=== PATIENT | female | born 1965 | race Caucasian/White ===

== ENCOUNTER 2025-03-15 10:37 | Observation (INO) ==
[2025-03-15] MEDS ORDERED: 0.9 % SODIUM CHLORIDE 1000 ML 1,000 ML IV ONE (11:16)
[2025-03-15] MEDS: 0.9 % SODIUM CHLORIDE 100 ML IV.SOLN IV STA (11:19)
[2025-03-15] MEDS: 0.9 % SODIUM CHLORIDE 1000 ML 1,000 ML IV ONE (11:19)
[2025-03-15 11:30] LABS: Basophils #(Absolute) Auto 0.1 (0.0-0.1); Basophils%(Percent) Auto 1.2 (0.1-0.85); Eosinophils#(Absolute)Auto 0.2 (0.0-0.2); Eosinophils%(Percent) Auto 1.9 % (0.4-2.8); Granulocytes % - Auto 66.4 % (47.8-71.3); Granulocytes#(Absolute)- Auto 5.3 (2.3-6.0); Hematocrit 38.3 % (35.9-46.7); Mean Corpuscular Volume 88.1 fl (81.0-93.7); Monocytes #(Absolute)- Auto 0.7 (1.1-3.1); Monocytes %(Percent)- Auto 8.9 % (3.6-9.8); Platelet Count 241 K/uL (152-353)
[2025-03-15 12:32] LABS: PH BODY FLUID EXCP BLOOD 6.5 (5 - 9); Specific Gravity Urine 1.025 (1.001-1.035); Urine Appearance HAZY (CLEAR); Urine Blood NEGATIVE (NEG - TRACE); Urine Color YELLOW (STRAW/YELL.); Urine Urobilinogen Normal (NORMAL)
[2025-03-15 12:57] LABS: Oxygen Saturation ABG 97 % (92-100); PCO2 ABG 40 mmHg (35-45); PO2 ABG 92 mmHg (60-100); pH ABG 7.44 (7.35-7.45)
[2025-03-15 12:58] LABS: Base Excess ABG 2.8 mmo1/L (-2-2)
[2025-03-15 13:26] LABS: Amphetamine Screen Urine NEG. (NEGATIVE); Cannabinoid Screen Urine NEG. (NEGATIVE); Cocaine Screen Urine NEG. (NEGATIVE); Methadone Screen Urine NEG. (NEGATIVE); Opiate Screen Urine NEG. (NEGATIVE)
--- NOTE | 2025-03-15 13:32 | Emergency Department Note ---
HPI - Dizziness General Chief Complaint: Syncope Stated Complaint: NEAR SYNCOPE Source: patient Mode of arrival: walk-in Limitations: no limitations History of Present Illness HPI Narrative: 59-year-old female patient presents conscious alert and oriented x 4 to the ER stating that she feels very weak. Patient states that she feels like she may have been drugged. Patient states that she started to experience the symptoms about 930 this morning. Patient states she she feels like her speech is slurred and that she just cannot keep her eyes open although states that she is not tired. Patient denies any alcohol or drug use. agrees that her speech sounded slurred which she noticed on a phone conversation. MD elicited complaint: Reports dizziness, lightheadedness and near syncope Pertinent past history: Denies BPPV, inner ear problems, stroke, syncope or Meniere's disease Onset (ago): hour(s) (0930 am) Timing: Reports sudden onset Severity: mild Description: Reports lightheadedness, near-syncope and other (feels like I have been drugged) Context: Denies change in medication, change in body position, trauma, anxiety, recent illness or exertion History of similar symptoms: No Exacerbating factors: Reports nothing Relieving factors: Reports nothing Associated symptoms: Reports denies other symptoms Related Data Home Medications Medication Instructions Recorded Confirmed citalopram 40 mg tablet 40 mg PO DAILY 06/26/24 03/15/25 Allergies Allergy/AdvReac Type Severity Reaction Status Date / Time epinephrine Allergy Mild Verified 03/15/25 11:06 Sulfa (Sulfonamide Allergy Mild Verified 03/15/25 11:06 Antibiotics) clarithromycin (From Biaxin) Allergy Verified 03/15/25 11:06 Review of Systems Status of ROS 10 or more systems reviewed and unremark able except as noted in history and below Neurological Reports: dizziness and slurred speech; Denies: headache, numbness in extremities, weakness in extremities, lack of coordination, vertigo, confusion, behavioral changes, difficulty communicating thoughts, seizure-like activity or involuntary movements Psychiatric Reports: anxiety PFSH PFSH Medical History Arthritis Anxiety Depression Diabetes Surgical History Previous section History of tonsillectomy History of elbow surgery History of repair of hiatal hernia Hx of cholecystectomy Hx of breast reduction, elective History of partial hysterectomy Social History Smoking status: never smoker Within the past year, how often did you have a drink containing alcohol: never Score interpretation: A score less than 3 is consistent with normal alcohol consumption. Non-prescribed substance use: denies use Problems where you live: no known problems Exam Constitutional: normal general appearance (hard time keeping eyes open. easily arousable with verbal stimuli ) and no apparent distress Vital Signs - 24 hr 03/15/25 10:45 03/15/25 10:45 03/15/25 10:47 Temperature 98.1 F Pulse Rate 93 H 93 H 95 H Respiratory Rate 18 Blood Pressure 135/75 135/75 141/77 Pulse Oximetry 98 Oxygen Delivery Me thod Room Air 03/15/25 10:49 03/15/25 11:15 03/15/25 11:30 Temperature Pulse Rate 94 H 85 83 Respiratory Rate 18 18 Blood Pressure 140/86 123/72 110/74 Pulse Oximetry 98 98 Oxygen Delivery Me thod Room Air Room Air 03/15/25 11:45 03/15/25 12:00 Temperature Pulse Rate 77 69 Respiratory Rate 18 18 Blood Pressure 102/59 121/70 Pulse Oximetry 98 98 Oxygen Delivery Ms thod Room Air Room Air HENMT: normocephalic and head/scalp atraumatic Eyes: PERRL, EOMs intact bilaterally and conjunctivae normal Neck/C-Spine: visual inspection normal, trachea midline and cervical spine nontender Lymph: no lymphadenopathy noted and no lymphedema noted Chest: inspection of chest normal and palpation of chest normal Respiratory: breath sounds equal bilaterally, normal respiratory effort and clear to auscultation bilaterally Cardiovascular: normal heart rate noted and regular rhythm noted Gastrointestinal: abdomen normal to inspection, abdomen soft to palpation and nontender to palpation Genitourinary: no CVA tenderness Back/Pelvis: spine normal to inspection Extremities: normal to inspection Neurology: 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 Breath sounds clear and equal bilaterally. Abdomen soft and nontender palpation. Normoactive bowel sounds. No rigidity or distention is noted. Patient is afebrile on evaluation. Ce-Hallpike maneuver is negative. NIH stroke scale is 0. Orthostatics are negative. Patient is able to answer questions and follow commands appropriately. Patient does have the appearance that she is extremely tired however states that she just cannot keep her eyes open. Patient states that she is not in fact tired. Onset of the symptoms was 9:[address] shows no acute intracranial findings. The patient was reached and spoke with Dr. Winchester neurology. After evaluation Dr. Winchester does not believe that this patient is experiencing any strokelike activity and believes that this may be systemic in nature. He has encouraged the patient to be admitted to observation with an MRI. He has also requested that the patient have TSH, ammonia and abg testing completed. I have consulted with Dr. Nabila Hurd who has agreed to admit patient for further evaluation and treatment. Vital Signs Vital signs: Vital Signs Temperature 98.1 F 03/15/25 10:45 Pulse Rate 93 H 03/15/25 10:45 Respiratory Rate 18 03/15/25 10:45 Blood Pressure 135/75 03/15/25 10:45 Pulse Oximetry 98 03/15/25 10:45 Oxygen Delivery Method Room Air 03/15/25 10:45 Temperature 98.1 F 03/15/25 10:45 Pulse Rate 69 03/15/25 12:00 Respiratory Rate 18 03/15/25 12:00 Blood Pressure 121/70 03/15/25 12:00 Pulse Oximetry 98 03/15/25 12:00 Oxygen Delivery Method Room Air 03/15/25 12:00 Discharge Plan Discharge Patient Disposition: Admitted As Observation Condition: Stable Clinical Impression: Dizziness, Near syncope, Lethargy Time of Disposition: 14:19
--- NOTE | 2025-03-15 15:23 | History & Physical Report ---
H&P: HPI History of Present Illness Chief complaint: DIZZINESS,LETHARGY NEAR SYNCOPE Narrative: 59-year-old female patient presents conscious alert and oriented x 4 to the ER stating that she feels very weak. Patient states that she feels like she may have been drugged. Patient states that she started to experience the symptoms about 930 this morning. Patient states she she feels like her speech is slurred and that she just cannot keep her eyes open although states that she is not tired. Patient denies any alcohol or drug use. agrees that her speech sounded slurred which she noticed on a phone conversation. Admitted patient to med/surg for further observation and treatment. Review of Systems Status of ROS 10 or more systems reviewed and unremark able except as noted in history and below Constitutional Reports: fatigue; Denies: fever, chills or change in weight Eyes Denies: change in vision, blurry vision, blind spots or light sensitivity Ears, nose, mouth, and throat Denies: throat pain, neck pain, throat swelling, difficulty swallowing or vertigo Cardiovascular Denies: chest pain, palpitations, edema or swelling of feet/ankles Respiratory Denies: shortness of breath, cough, wheezing, stridor or pain on inspiration Gastrointestinal Denies: abdominal pain, nausea, vomiting, coffee grounds in vomit, heartburn or diarrhea Genitourinary Denies: painful urination, urinary frequency, urinary urgency, urinary incontinence, blood in urine or difficulty voiding Musculoskeletal Denies: back pain, neck pain, extremity pain or extremity swelling Integumentary/Breast Denies: rash, itching, redness, skin pain, skin tenderness, skin swelling or sores Neurological Reports: dizziness and slurred speech; Denies: headache, numbness in extremities, weakness in extremities, lack of coordination, vertigo, confusion, behavioral changes, difficulty communicating thoughts, seizure-like activity or involuntary movements Psychiatric Reports: anxiety Endocrine Reports: fatigue; Denies: excessive urination, excessive thirst or cold intolerance Hematologic/Lymphatic Denies: easy bruising, easy bleeding or enlarged lymph nodes Allergic/Immunologic Denies: hives, throat swelling, tongue swelling or facial swelling PFSH PFS Medical History Arthritis Anxiety Depression Diabetes Surgical History Previous section History of tonsillectomy History of elbow surgery History of repair of hiatal hernia Hx of cholecystectomy Hx of breast reduction, elective History of partial hysterectomy Social History Smoking status: never smoker Within the past year, how often did you have a drink containing alcohol: never Score interpretation: A score less than 3 is consistent with normal alcohol consumption. Non-prescribed substance use: denies use Problems where you live: no known problems Meds Home Medications and Allergies Home Medications Medication Instructions Recorded Confirmed Type citalopram 40 mg tablet 40 mg PO DAILY 06/26/24 03/15/25 History ergocalciferol (vitamin D2) 1,250 1,250 mcg PO QWEEK 03/15/25 03/15/25 History mcg (50,000 unit) capsule gabapentin 100 mg capsule 100 mg PO BEDTIME 03/15/25 03/15/25 History Allergies Allergy/AdvReac Type Severity Reaction Status Date / Time epinephrine Allergy Mild Verified 03/15/25 11:06 Sulfa (Sulfonamide Allergy Mild Verified 03/15/25 11:06 Antibiotics) clarithromycin (From Biaxin) Allergy Verified 03/15/25 11:06 Exam Exam: Patient in NAD, presents lethargic. Constitutional: abnormal general appearance (hard time keeping eyes open. easily arousable with verbal stimuli ) (disheveled), no apparent distress, abnormal body habitus (obese), no limitations and alert Vital Signs - 24 hr 03/15/25 10:45 03/15/25 10:45 03/15/25 10:47 Temperature 98.1 F Pulse Rate 93 H 93 H 95 H Respiratory Rate 18 Blood Pressure 135/75 135/75 141/77 Pulse Oximetry 98 Oxygen Delivery Me thod Room Air 03/15/25 10:49 03/15/25 11:15 03/15/25 11:30 Temperature Pulse Rate 94 H 85 83 Respiratory Rate 18 18 Blood Pressure 140/86 123/72 110/74 Pulse Oximetry 98 98 Oxygen Delivery Me thod Room Air Room Air 03/15/25 11:45 03/15/25 12:00 03/15/25 12:30 Temperature Pulse Rate 77 69 83 Respiratory Rate 18 18 18 Blood Pressure 102/59 121/70 127/72 Pulse Oximetry 98 98 98 Oxygen Delivery Me thod Room Air Room Air Room Air 03/15/25 13:00 03/15/25 13:30 03/15/25 14:00 Temperature Pulse Rate 76 76 79 Respiratory Rate 17 17 16 Blood Pressure 123/77 110/64 125/64 Pulse Oximetry 98 97 97 Oxygen Delivery Ia thod Room Air Room Air Room Air 03/15/25 14:30 Temperature Pulse Rate 74 Respiratory Rate 17 Blood Pressure 101/62 Pulse Oximetry [address] [facility] HENMT: normocephalic, head/scalp atraumatic, hearing grossly normal bilaterally and oral mucous membranes abnormal Eyes: PERRL, EOMs intact bilaterally, conjunctivae normal, no scleral icterus, papilledema noted and periorbital findings normal Neck/C-Spine: trachea midline, cervical spine nontender, abnormal cervical ROM noted, supple, no meningeal signs, thyroid normal and no carotid bruits Lymph: no lymphadenopathy noted and no lymphedema noted Chest: inspection of chest normal and palpation of chest normal Respiratory: breath sounds equal bilaterally, normal respiratory effort and clear to auscultation bilaterally Cardiovascular: normal heart rate noted and regular rhythm noted Gastrointestinal: abdomen normal to inspection, abdomen soft to palpation and nontender to palpation Genitourinary: no CVA tenderness and bladder normal to palpation Back/Pelvis: no thoracic spine tenderness and no lumbar spine tenderness Extremities: normal to inspection, normal to palpation, no tenderness, full ROM and no joint enlargement 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: 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 services 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-XII 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, no movement abnormality noted, no focal motor deficit noted, no sensory deficits noted, gait abnormality noted, speech abnormality noted, coordination normal and GCS normal Psychiatry: mental status grossly normal, oriented x3, thought process normal, cooperative and memory normal Skin: skin color normal, no rash, no lesions, no ecchymosis noted, no wounds, no lacerations, skin turgor abnormal, no petechiae, no mottling and nails normal Assessment and Plan Assessment and Plan (1) AMS (altered mental status): Qualifiers: Altered mental status type: unspecified Qualified Code(s): R41.82 - Altered mental status, unspecified Code(s): R41.82 - Altered mental status, unspecified (2) Dizziness: Code(s): R42 - Dizziness and giddiness (3) Lethargy: Code(s): R53.83 - Other fatigue (4) Hyperglycemia: Code(s): R73.9 - Hyperglycemia, unspecified (5) Near syncope: Code(s): R55 - Syncope and collapse (6) Hypoalbuminemia: Code(s): E88.09 - Other disorders of plasma-protein metabolism, not elsewhere classified (7) Diabetes: Qualifiers: Diabetes mellitus complication status: with hyperglycemia Diabetes mellitus penitentiary insulin use: with penitentiary use Diabetes mellitus type: type 2 Qualified Code(s): E11.65 - Type 2 diabetes mellitus with hyperglycemia; Z79.4 - shelter (current) use of insulin Code(s): E11.9 - Type 2 diabetes mellitus without complications (8) Depression: Qualifiers: Depression Type: unspecified Qualified Code(s): F32.A - Depression, unspecified Code(s): F32.A - Depression, unspecified (9) Anxiety: Code(s): F41.9 - Anxiety disorder, unspecified (10) Arthritis: Code(s): M19.90 - Unspecified osteoarthritis, unspecified site Plan Citalopram Hydrobromide 40 mg PO DAILY Ergocalciferol 1,250 mcg PO QWEEK Gabapentin 100 mg PO BEDTIME cardiac and oximetry continous monitoring POC ACHS EKG in the AM Trop every 6 hours 0.9NS at 83 ml per hour neuro checks every 4 hours and prn MRI of the head Results Labs Labs: CBC 03/15/25 Range/Units 11:15 WBC 8.0 (4.3-9.3) K/uL RBC 4.3 (4.00-5.50) M/uL Hgb 12.8 (12.5-15.8) gm/dL Hct 38.3 (35.9-46.7) % Plt Count 241 (152-353) K/uL Gran % 66.4 (47.8-71.3) % Lymph % (Auto) 21.6 (20.0-43.0) % [place] % (Auto) 8.9 (3.6-9.8) % Eos % (Auto) 1.9 (0.4-2.8) % Baso % (Auto) 1.2 H (0.1-0.85) Lymph # (Auto) 1.7 (1.1-3.1) [place] # (Auto) 0.7 L (1.1-3.1) Eos # (Auto) 0.2 (0.0-0.2) Baso # (Auto) 0.1 (0.0-0.1) Absolute Gran (auto) 5.3 (2.3-6.0) CMP 03/15/25 11:15 Sodium 143 Potassium 4.0 Chloride 106.0 Carbon Dioxide 32 BUN 17 Creatinine 1.0 Glucose 154 H Calcium 8.8 Liver Function 03/15/25 Range/Units 11:15 Total Bilirubin 0.15 (0.0-1.0) mg/dL AST 13 L (15-37) U/L ALT 20 L (30-65) U/L Alkaline Phosphatase 103 (50-136) U/L Albumin 3.2 L (3.4-5.0) g/dL Urine 03/15/25 11:04 Urine Color Yellow Urine Appearance Hazy Ur Specific [place] 1.025 Urine Protein Negative Urine Glucose (UA) Normal ABG ABG results: 03/15/25 12:36 ABG pH 7.44 ABG pCO2 40 ABG pO2 100 ABG HCO3 27.2 H ABG Total CO2 28.4 ABG O2 Saturation 97 ABG Base Excess 2.8 H Attestation: I have reviewed the pertinent ABG results. Pulse Oximetry Attestation: I have reviewed the pertinent pulse oximetry results. ECG Attestation: I have reviewed the pertinent ECG results. Prior ECG tracings: available for review Imaging Imaging ordered: CT scan - head Radiologist's impression: CT HEAD/BRAIN WO CON Date of Service: 03/15/25 HISTORY: change in mental statuschange in mental status; COMPARISON: Prior study or studies were utilized for comparison during interpretation with the most relevant dated 09/30/2023 TECHNIQUE: CT images were obtained. Multiplanar reconstructions were created on a separate workstation and used during interpretation. All CT scans at this facility is dose modulation, iterative reconstruction, and/or weight-based dosing as appropriate to reduce radiation to levels as low as reasonably achievable (ALARA). Postprocessing details, radiation dose, and contrast dose (if applicable) are recorded in the patient's medical record. FINDINGS: Head: Acute findings: There is no intracranial hemorrhage. No mass effect. No intra- axial or extra-axial fluid collection. There is no mass. No tentorial, uncal, or tonsillar herniation. Brain volume and white matter: Brain volume and attenuation is normal for age. Ventricles: No hydrocephalus Midline structures: Pituitary gland and corpus callosum are normal. Posterior fossa and skull base: Cerebellum and posterior fossa are within normal limits. Basal cisterns are not effaced. Sinuses and mastoids: Paranasal sinuses and mastoid air cells are predominantly clear. Globes and Orbits: Globes are intact. Bony orbits are intact. Orbital contents are unremarkable. Skull and soft tissues: No depressed skull fracture. Calvarium appears intact. No scalp injury is identified. IMPRESSION: 1. No acute intracranial abnormality
[2025-03-15] MEDS: ACETAMINOPHEN 500 MG TABLET PO PRN (17:08)
[2025-03-15] MEDS: PANTOPRAZOLE SODIUM 40 MG TABLET.DR PO SCH (17:08)
[2025-03-15] MEDS: ENOXAPARIN SODIUM 40 MG/0.4 ML SYRINGE SUBQ SCH (20:07)
[2025-03-15] MEDS: GABAPENTIN 100 MG CAPSULE PO SCH (20:08)
[2025-03-15] MEDS: ONDANSETRON HCL/PF 4 MG/2 ML VIAL IVP PRN (20:27)
[2025-03-16 03:57] LABS: Basophils%(Percent) Auto 0.6 (0.1-0.85); Eosinophils#(Absolute)Auto 0.2 (0.0-0.2); Eosinophils%(Percent) Auto 2.3 % (0.4-2.8); Granulocytes % - Auto 48.2 % (47.8-71.3); Granulocytes#(Absolute)- Auto 3.5 (2.3-6.0); Hematocrit 35.6 % (35.9-46.7); Mean Corpuscular Volume 87.3 fl (81.0-93.7); Monocytes #(Absolute)- Auto 0.6 (1.1-3.1); Platelet Count 226 K/uL (152-353); White Blood Count 7.3 K/uL (4.3-9.3)
[2025-03-16 07:45] VITALS: PULSE 66
[2025-03-16] MEDS: CITALOPRAM HYDROBROMIDE 20 MG TABLET PO SCH (09:10)
--- NOTE | 2025-03-16 10:17 | Discharge Summary ---
DS: Providers Provider Date of admission: 03/15/25 14:35 Primary care physician: Millie Gaytan Admitting clinician: Quinton Berg Attending physician on admission: Nabila Hurd Attending physician on discharge: Nabila Hurd Discharging clinician: Nabila Hurd Anticipated date of discharge: 03/16/25 DS: Diagnosis Discharge Diagnosis (1) AMS (altered mental status): Qualifiers: Altered mental status type: unspecified Qualified Code(s): R41.82 - Altered mental status, unspecified (2) Near syncope: (3) Hyperglycemia: (4) TIA (transient ischemic attack): (5) Dizziness: (6) Lethargy: (7) Hypoalbuminemia: (8) Diabetes: Qualifiers: Diabetes mellitus complication status: with hyperglycemia Diabetes mellitus rn long term care insulin use: with mcc use Diabetes mellitus type: type 2 Qualified Code(s): E11.65 - Type 2 diabetes mellitus with hyperglycemia; 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 (9) Depression: Qualifiers: Depression Type: unspecified Qualified Code(s): F32.A - Depression, unspecified (10) Anxiety: (11) Arthritis: (12) Bacterial labyrinthitis of both ears: (13) GERD with esophagitis: Qualifiers: Esophagitis bleeding: without hemorrhage Qualified Code(s): K21.00 - Gastro-esophageal reflux disease with esophagitis, without bleeding (14) Esophageal stricture: (15) Allergic sinusitis: (16) Sinus headache: Plan Citalopram Hydrobromide 40 mg PO DAILY Ergocalciferol 1,250 mcg PO QWEEK Gabapentin 100 mg PO BEDTIME Pantoprazole Sodium 40 mg PO DAILY Enoxaparin Sodium 40 mg SUBQ BEDTIME neuro checks every 4 hours and prn consult PT and OT and evaluate for eply maneuver Acetaminophen 1,000 mg PO Q6H PRN Ondansetron Hcl 4 mg IVP Q4H PRN Discharge home for self care. Follow up with Neurology DS: Summary Hospital Course Hospital Course: Patient was evaluated in the ER found to be in no acute distress. Breath sounds clear and equal bilaterally. Abdomen soft and nontender palpation. Normoactive bowel sounds. No rigidity or distention is noted. Patient is afebrile on evaluation. [place]-Hallpike maneuver is negative. NIH stroke scale is 0. Orthostatics are negative. Patient is able to answer questions and follow commands appropriately. Patient does have the appearance that she is extremely tired however states that she just cannot keep her eyes open. Patient states that she is not in fact tired. Onset of the symptoms was 9:[address] shows no acute intracranial findings. The patient was reached and spoke with Dr. Winchester neurology. After evaluation Dr. Winchester does not believe that this patient is experiencing any strokelike activity and believes that this may be systemic in nature. He has encouraged the patient to be admitted to observation with an MRI. He has also requested that the patient have TSH, ammonia and abg testing completed. Day two of hospital stay, patient no longer reports trouble keeping her eyes open and symptoms from previous day have resolved. Patient labs are within normal limits, urinalysis was negative and MRI was negative. Patient is ready to discharge home for self care. Follow up with PCP in 5-7 days of discharge or sooner if needed. Follow up with Neurologist due to episode of altered state of consciousness. Status at Discharge Functional status at discharge: independent ambulation Overall status at discharge: patient is back to baseline Time Spent with Patient Time attestation: Total time spent providing and/or coordinating discharge services: 39 Time spent: greater than 30 minutes Exam Exam: Patient in NAD. Constitutional: abnormal general appearance (disheveled) and (chronically ill), no apparent distress, abnormal body habitus (obese), no limitations and alert Vital Signs - 24 hr 03/15/25 10:45 03/15/25 10:45 03/15/25 10:47 Temperature 98.1 F Pulse Rate 93 H 93 H 95 H Pulse Rate [Bilate ral] Respiratory Rate 18 Blood Pressure 135/75 135/75 141/77 Blood Pressure [Ri ght Arm] Pulse Oximetry 98 Oxygen Delivery Me thod Room Air 03/15/25 10:49 03/15/25 11:15 03/15/25 11:30 Temperature Pulse Rate 94 H 85 83 Pulse Rate [Bilate ral] Respiratory Rate 18 18 Blood Pressure 140/86 123/72 110/74 Blood Pressure [Ri ght Arm] Pulse Oximetry 98 98 Oxygen Delivery Me thod Room Air Room Air 03/15/25 11:45 03/15/25 12:00 03/15/25 12:30 Temperature Pulse Rate 77 69 83 Pulse Rate [Bilate ral] Respiratory Rate 18 18 18 Blood Pressure 102/59 121/70 127/72 Blood Pressure [Ri ght Arm] Pulse Oximetry 98 98 [facility] Room [facility] Room Air 03/15/25 13:00 03/15/25 13:30 03/15/25 14:00 Temperature Pulse Rate 76 76 79 Pulse Rate [Bilate ral] Respiratory Rate 17 17 16 Blood Pressure 123/77 110/64 125/64 Blood Pressure [Ri ght Arm] Pulse Oximetry 98 97 97 [facility] Room Air Room Air 03/15/25 14:30 03/15/25 14:47 03/15/25 15:00 Temperature Pulse Rate 74 76 Pulse Rate [Bilate ral] Respiratory Rate 17 18 18 Blood Pressure 101/62 119/74 Blood Pressure [Ri ght Arm] Pulse Oximetry 96 96 98 Oxygen Delivery [facility] Room Air Room Air Room Air 03/15/25 15:13 03/15/25 19:31 03/15/25 23:21 Temperature 98.1 F 98.0 F 98.4 F Pulse Rate 76 Pulse Rate [Bilate ral] 76 58 L Respiratory Rate 18 18 16 Blood Pressure 119/74 Blood Pressure [Ri ght Arm] 122/68 107/58 Pulse Oximetry 98 100 95 [facility] Room Air 03/16/25 03:37 03/16/25 07:45 Temperature 97.7 F 97.8 F Pulse Rate Pulse Rate [Bilate ral] 65 66 Respiratory Rate 20 18 Blood Pressure Blood Pressure [Ri ght Arm] 121/64 105/61 Pulse Oximetry 96 97 Oxygen Delivery [facility] Room Air Room Air HENMT: normocephalic, head/scalp atraumatic, hearing grossly normal bilaterally and oral mucous membranes abnormal Eyes: PERRL, EOMs intact bilaterally, conjunctivae normal, no scleral icterus, papilledema noted and periorbital findings normal Neck/C-Spine: visual inspection normal, trachea midline, cervical spine nontender, abnormal cervical ROM noted, supple, no meningeal signs, thyroid normal and no carotid bruits Lymph: no lymphadenopathy noted and no lymphedema noted Chest: inspection of chest normal and palpation of chest normal Respiratory: breath sounds equal bilaterally, normal respiratory effort and clear to auscultation bilaterally Cardiovascular: normal heart rate noted, regular rhythm noted, no gallop, no rub, no murmur, no JVD, no clicks, peripheral pulses 2+ throughout and no bruits noted Gastrointestinal: abdomen normal to inspection, abdomen soft to palpation, nontender to palpation, nondistended, normoactive bowel sounds, hepatosplenomegaly noted, no masses, no pulsatile mass, no ascites and no hernia Genitourinary: no CVA tenderness and bladder normal to palpation Back/Pelvis: spine normal to inspection, no thoracic spine tenderness, no lumbar spine tenderness, thoracic spine ROM normal and lumbar spine ROM normal Extremities: normal to inspection, normal to palpation, no tenderness, full ROM, no joint enlargement and no deformity 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, no movement abnormality noted, no focal motor deficit noted, no sensory deficits noted, gait abnormality noted, speech abnormality noted, coordination normal and GCS normal Psychiatry: mental status grossly normal, oriented x3, thought process normal, cooperative, affect abnormality noted (depressed), psychomotor abnormality noted (slow) and memory normal Skin: skin color abnormal Reports (pale), no rash, no lesions, no ecchymosis noted, no wounds, no lacerations, skin turgor abnormal, no petechiae, no mottling and nails normal DS: Data Data Completed and Pending Labs on day of discharge: Labs from last 24 hours 03/16/25 03/16/25 03/15/25 06:00 04:00 22:15 WBC 7.3 RBC 4.1 Hgb 11.8 L Hct 35.6 L MCV 87.3 MCH 29.0 MCHC 33.3 RDW 13.5 Plt Count 226 MPV 8.5 Gran % 48.2 Lymph % (Auto) 40.9 Isabella % (Auto) 8.0 Eos % (Auto) 2.3 Baso % (Auto) 0.6 Lymph # (Auto) 3.0 Isabella # (Auto) 0.6 L Eos # (Auto) 0.2 Baso # (Auto) 0.0 Absolute Gran (auto) 3.5 ABG pH ABG pCO2 ABG pO2 ABG HCO3 ABG Total CO2 ABG O2 Saturation ABG Base Excess A-a O2 Gradient Respiratory Index FiO2 Sodium 143 Potassium 4.0 Chloride 107.0 Carbon Dioxide 31 Anion Gap 5.0 BUN 14 Creatinine 0.8 Estimated GFR 85.4 Glucose 115 H Calcium 8.6 Phosphorus 4.6 Magnesium 1.8 Total Bilirubin 0.24 AST 11 L ALT 18 L Alkaline Phosphatase 81 Total Creatine Kinase Troponin I High Sens <4.00 L 5.40 Total Protein 6.3 L Albumin 2.9 L TSH Urine Color Urine Appearance Ur Specific [employer] Urine Protein Urine Glucose (UA) Urine Ketones Urine Occult Blood Urine Nitrite Urine Bilirubin Urine Urobilinogen Ur Leukocyte Esterase Fluid pH Salicylates Urine Opiates Screen Urine Methadone Screen Acetaminophen Barbiturate Screen Ur Phencyclidine Scrn Amphetamines Screen U Benzodiazepines Scrn Urine Cocaine Screen U Marijuana (THC) Screen Plasma/Serum Alcohol COVID-19 (BREANA) Influenza Type A Ag Influenza Type B Ag 03/15/25 03/15/25 03/15/25 16:00 12:55 12:36 WBC RBC Hgb Hct MCV MCH MCHC RDW Plt Count MPV Gran % Lymph % (Auto) Isabella % (Auto) Eos % (Auto) Baso % (Auto) Lymph # (Auto) Isabella # (Auto) Eos # (Auto) Baso # (Auto) Absolute Gran (auto) ABG pH ABG pCO2 ABG pO2 100 ABG HCO3 27.2 H ABG Total CO2 28.4 ABG O2 Saturation 97 ABG Base Excess 2.8 H A-a O2 Gradient 8 Respiratory Index 0.1 FiO2 21.0 Sodium Potassium Chloride Carbon Dioxide Anion Gap BUN Creatinine Estimated GFR Glucose Calcium Phosphorus Magnesium Total Bilirubin AST ALT Alkaline Phosphatase Total Creatine Kinase 119 Troponin I High Sens <4.00 L Total Protein Albumin TSH 0.93 Urine Color Urine Appearance Ur Specific [employer] Urine Protein Urine Glucose (UA) Urine Ketones Urine Occult Blood Urine Nitrite Urine Bilirubin Urine Urobilinogen Ur Leukocyte Esterase Fluid pH Salicylates Urine Opiates Screen Urine Methadone Screen Acetaminophen Barbiturate Screen Ur Phencyclidine Scrn Amphetamines Screen U Benzodiazepines Scrn Urine Cocaine Screen U Marijuana (THC) Screen Plasma/Serum Alcohol COVID-19 (BREANA) Influenza Type A Ag Influenza Type B Ag 03/15/25 03/15/25 03/15/25 12:36 12:15 11:15 WBC 8.0 RBC 4.3 Hgb 12.8 Hct 38.3 MCV 88.1 MCH 29.4 MCHC 33.3 RDW 13.9 Plt Count 241 MPV 8.9 Gran % 66.4 Lymph % (Auto) 21.6 Isabella % (Auto) 8.9 Eos % (Auto) 1.9 Baso % (Auto) 1.2 H Lymph # (Auto) 1.7 Isabella # (Auto) 0.7 L Eos # (Auto) 0.2 Baso # (Auto) 0.1 Absolute Gran (auto) 5.3 ABG pH 7.44 ABG pCO2 40 ABG pO2 92 ABG HCO3 ABG Total CO2 ABG O2 Saturation ABG Base Excess A-a O2 Gradient Respiratory Index FiO2 Sodium 143 Potassium 4.0 Chloride 106.0 Carbon Dioxide 32 Anion Gap 5.0 BUN 17 Creatinine 1.0 Estimated GFR 65.3 Glucose 154 H Calcium 8.8 Phosphorus Magnesium Total Bilirubin 0.15 AST 13 L ALT 20 L Alkaline Phosphatase 103 Total Creatine Kinase Troponin I High Sens 6.10 Total Protein 6.8 Albumin 3.2 L TSH Urine Color Urine Appearance Ur Specific [employer] Urine Protein Urine Glucose (UA) Urine Ketones Urine Occult Blood Urine Nitrite Urine Bilirubin Urine Urobilinogen Ur Leukocyte Esterase Fluid pH Salicylates <2.8 L Urine Opiates Screen Neg. Urine Methadone Screen Neg. Acetaminophen 0.0 L Barbiturate Screen Neg. Ur Phencyclidine Scrn Neg. Amphetamines Screen Neg. U Benzodiazepines Scrn Neg. Urine Cocaine Screen Neg. U Marijuana (THC) Screen Neg. Plasma/Serum Alcohol 0 COVID-19 (BREANA) Not detected Influenza Type A Ag Negative Influenza Type B Ag Negative 03/15/25 11:04 WBC RBC Hgb Hct MCV MCH MCHC RDW Plt Count MPV Gran % Lymph % (Auto) Isabella % (Auto) Eos % (Auto) Baso % (Auto) Lymph # (Auto) Isabella # (Auto) Eos # (Auto) Baso # (Auto) Absolute Gran (auto) ABG pH ABG pCO2 ABG pO2 ABG HCO3 ABG Total CO2 ABG O2 Saturation ABG Base Excess A-a O2 Gradient Respiratory Index FiO2 Sodium Potassium Chloride Carbon Dioxide Anion Gap BUN Creatinine Estimated GFR Glucose Calcium Phosphorus Magnesium Total Bilirubin AST ALT Alkaline Phosphatase Total Creatine Kinase Troponin I High Sens Total Protein Albumin TSH Urine Color Yellow Urine Appearance Hazy Ur Specific [employer] 1.025 Urine Protein Negative Urine Glucose (UA) Normal Urine Ketones Negative Urine Occult Blood Negative Urine Nitrite Negative Urine Bilirubin Negative Urine Urobilinogen Normal Ur Leukocyte Esterase Negative Fluid pH 6.5 Salicylates Urine Opiates Screen Urine Methadone Screen Acetaminophen Barbiturate Screen Ur Phencyclidine Scrn Amphetamines Screen U Benzodiazepines Scrn Urine Cocaine Screen U Marijuana (THC) Screen Plasma/Serum Alcohol COVID-19 (BREANA) Influenza Type A Ag Influenza Type B Ag Imaging CT scan - head: Radiologist's impression: CT HEAD/BRAIN WO CON Date of Service: 03/15/25 HISTORY: change in mental statuschange in mental status; COMPARISON: Prior study or studies were utilized for comparison during interpretation with the most relevant dated 09/30/2023 TECHNIQUE: CT images were obtained. Multiplanar reconstructions were created on a separate workstation and used during interpretation. All CT scans at this facility is dose modulation, iterative reconstruction, and/or weight-based dosing as appropriate to reduce radiation to levels as low as reasonably achievable (ALARA). Postprocessing details, radiation dose, and contrast dose (if applicable) are recorded in the patient's medical record. FINDINGS: Head: Acute findings: There is no intracranial hemorrhage. No mass effect. No intra- axial or extra-axial fluid collection. There is no mass. No tentorial, uncal, or tonsillar herniation. Brain volume and white matter: Brain volume and attenuation is normal for age. Ventricles: No hydrocephalus Midline structures: Pituitary gland and corpus callosum are normal. Posterior fossa and skull base: Cerebellum and posterior fossa are within normal limits. Basal cisterns are not effaced. Sinuses and mastoids: Paranasal sinuses and mastoid air cells are predominantly clear. Globes and Orbits: Globes are intact. Bony orbits are intact. Orbital contents are unremarkable. Skull and soft tissues: No depressed skull fracture. Calvarium appears intact. No scalp injury is identified. IMPRESSION: 1. No acute intracranial abnormality MRI - head: Radiologist's impression: MR HEAD WO CON Date of Service: 03/15/25 HISTORY: Altered mental status COMPARISON: CT head without contrast from March 15, 2025 TECHNIQUE: Non-contrast MRI images of the brain were obtained utilizing a routine protocol. FINDINGS: No abnormal signal in the dural sinuses on the sagittal T1 sequence. Pituitary gland and stalk appear normal. No mass effect on the optic chiasm. No Chiari 1 malformation. Imaged portion of the spine and spinal cord appear grossly normal. No restricted diffusion. Flow voids appear normal on the T2 sequence. No intracranial, extra-axial, fluid collection. No mass, mass effect or midline shift. No abnormal areas of acute T2 signal in the brain parenchyma. No blooming artifact in the brain parenchyma. Sinuses are well aerated Small amount of fluid in the right mastoid air cells; nonspecific. Left mastoid air cells are well-aerated. Globes and intra-orbital contents appear normal. No ventriculomegaly. IMPRESSION: No acute intracranial abnormality identified. Discharge Plan Discharge Disposition: Home, Self-Care Condition: Improved Discharge Medications: New aspirin 81 mg tablet,delayed release (DR/EC) 81 mg PO DAILY Qty: 30 0RF famotidine [Pepcid] 40 mg tablet 40 mg PO BID Qty: 30 0RF levocetirizine [Xyzal] 5 mg tablet 5 mg PO DAILY Qty: 30 0RF fluticasone propionate [Flonase Allergy Relief] 50 mcg/actuation spray,suspension 1 spray intranasal BID Qty: 16 0RF Rx Instructions: administer into each nostril Continued citalopram 40 mg tablet 40 mg PO DAILY gabapentin 100 mg capsule 100 mg PO BEDTIME ergocalciferol (vitamin D2) 1,250 mcg (50,000 unit) capsule 1,250 mcg PO QWEEK Discharge Orders: Discharge Order (Routine); Ordered 03/16/25 Ordered By: Nabila Hurd Activity: increase activity as tolerated Diet: advance to your usual diet Interventions: Discharge Assessment Last Done: 03/16/25 12:21 MED/SURG & ICU Observation Charge Sheet Last Done: 03/16/25 12:23 Patient Instructions: Near Syncope (DC), Dizziness (GEN) Activity Restrictions/Additional Instructions: follow up PCP 1 week Dami Gaytan neurology appointment cardiology already had cath last year Follow up PCP or return to the ER earl if symptoms persist or worsen Forms: Portal/Health Info Access Inst Follow-Ups: Millie Gaytan [Primary Care Provider] - Discharge Date/Time: 03/16/25 12:59
[2025-03-16 12:11] VITALS: BP 121/76; RESP 16; TEMP 97.6
[2025-03-16] MEDS: KETOROLAC 30 MG/ML INJ VIAL IVP ONE (12:37)
[2025-03-22] MEDS ORDERED: ERGOCALCIFEROL (VITAMIN D2) 1,250 MCG CAPSULE PO SCH (09:00)
== END 2025-03-16 12:59 | disposition home or self-care (01) ==
LOC: ED 10:37 → MS 10:37
PROVIDERS: ADMIT Family Medicine; ATTEND Family Medicine
DX: K22.2 Esophageal obstruction; Z88.1 Allergy status to other antibiotic agents; Z88.2 Allergy status to sulfonamides; H83.03 Labyrinthitis, bilateral; E11.65 Type 2 diabetes mellitus with hyperglycemia; F41.9 Anxiety disorder, unspecified; R51.9 Headache, unspecified; Z79.899 Other long term (current) drug therapy; K21.00 Gastro-esophageal reflux disease with esophagitis, without bleeding; Z79.82 Long term (current) use of aspirin; M19.90 Unspecified osteoarthritis, unspecified site; F32.A Depression, unspecified; Z79.4 Long term (current) use of insulin; G45.9 Transient cerebral ischemic attack, unspecified; Z88.8 Allergy status to other drugs, medicaments and biological substances; J30.9 Allergic rhinitis, unspecified; E88.09 Other disorders of plasma-protein metabolism, not elsewhere classified

== ENCOUNTER 2025-03-18 15:24 | Observation (INO) ==
[2025-03-18] MEDS: KETOROLAC 30 MG/ML INJ VIAL IVP ONE (16:22)
[2025-03-18] MEDS: ONDANSETRON HCL/PF 4 MG/2 ML VIAL INJ ONE (16:23)
[2025-03-18 17:22] LABS: Basophils #(Absolute) Auto 0.1 (0.0-0.1); Basophils%(Percent) Auto 0.8 (0.1-0.85); Eosinophils#(Absolute)Auto 0.2 (0.0-0.2); Eosinophils%(Percent) Auto 2.2 % (0.4-2.8); Granulocytes % - Auto 62.6 % (47.8-71.3); Granulocytes#(Absolute)- Auto 4.9 (2.3-6.0); Mean Corpuscular Volume 87.9 fl (81.0-93.7); Monocytes #(Absolute)- Auto 0.6 (1.1-3.1); Monocytes %(Percent)- Auto 7.9 % (3.6-9.8); Platelet Count 229 K/uL (152-353); White Blood Count 7.7 K/uL (4.3-9.3)
--- NOTE | 2025-03-18 17:32 | Emergency Department Note ---
HPI - Neuro Symptoms/Deficit General Chief Complaint: Stroke Stated Complaint: hx of stroke like symptoms,Headache Source: patient and family Mode of arrival: walk-in Limitations: no limitations History of Present Illness HPI Narrative: 59-year-old female reports approximate 5-day history of continued right-sided headache. Patient seen in ED and admitted 3 days prior, ultimately diagnosed with TIA at discharge. Patient states she had a headache her entire hospital course and at time of discharge. She returns to the ER today with continued headache and complaints of right sided facial numbness and blurry vision. She denies loss of consciousness/syncopal episode. She denies fever. Location: Reports right face Severity: mild-moderate Quality: Reports numb Relieving factors: Reports none Exacerbating factors: Reports none Context: Reports gradual onset On Anticoagulants: No Associated symptoms: Reports headaches Treatments Prior to Arrival: Reports none Related Data Home Medications Medication Instructions Recorded Confirmed citalopram 40 mg tablet 40 mg PO DAILY 06/26/24 03/15/25 ergocalciferol (vitamin D2) 1,250 1,250 mcg PO QWEEK 03/15/25 03/15/25 mcg (50,000 unit) capsule gabapentin 100 mg capsule 100 mg PO BEDTIME 03/15/25 03/15/25 Previous Rx's Medication Instructions Recorded aspirin 81 mg tablet,delayed 81 mg PO DAILY tia #30 tabs 03/16/25 release famotidine 40 mg tablet (Pepcid) 40 mg PO BID gerd #30 tabs 03/16/25 fluticasone propionate 50 1 spray intranasal BID sinus #16 03/16/25 mcg/actuation nasal grams spray,suspension (Flonase Allergy Relief) levocetirizine 5 mg tablet (Xyzal) 5 mg PO DAILY allergic sinusi #30 03/16/25 tabs Allergies Allergy/AdvReac Type Severity Reaction Status Date / Time epinephrine Allergy Mild Verified 03/18/25 15:48 Sulfa (Sulfonamide Allergy Mild Verified 03/18/25 15:48 Antibiotics) clarithromycin (From Biaxin) Allergy Verified 03/18/25 15:48 Review of Systems Status of ROS 10 or more systems reviewed and unremark able except as noted in history and below [facility] Medical History Esophageal stricture GERD with esophagitis Dilatation of esophagus Arthritis Anxiety Depression Diabetes Surgical History Previous section History of tonsillectomy History of elbow surgery History of repair of hiatal hernia Hx of cholecystectomy Hx of breast reduction, elective History of partial hysterectomy Social History Smoking status: never smoker Within the past year, how often did you have a drink containing alcohol: never Score interpretation: A score less than 3 is consistent with normal alcohol consumption. Non-prescribed substance use: denies use What is your current living situation: I presently have a place to live Problems where you live: no known problems Highest level of school completed/degree received: high school Exam Constitutional: normal general appearance and no apparent distress Vital Signs - 24 hr 03/18/25 15:30 Temperature 98 F Pulse Rate 86 Respiratory Rate 16 Blood Pressure 146/76 Pulse Oximetry 98 Oxygen Delivery Me thod Room Air HENMT: normocephalic, head/scalp atraumatic, nasal mucous membranes normal, oral mucous membranes normal and oropharynx normal Eyes: PERRL, EOMs intact bilaterally, conjunctivae normal and no scleral icterus Neck/C-Spine: visual inspection normal, trachea midline, cervical spine nontender, cervical full ROM noted and supple Lymph: no lymphadenopathy noted Chest: inspection of chest normal Respiratory: breath sounds equal bilaterally, normal respiratory effort, clear to auscultation bilaterally, no wheezes and no rales Cardiovascular: normal heart rate noted, regular rhythm noted, no gallop, no rub, no murmur and no JVD Gastrointestinal: abdomen normal to inspection, abdomen soft to palpation, nontender to palpation, nontender to percussion, nondistended, no masses and no ascites Genitourinary: no CVA tenderness Back/Pelvis: spine normal to inspection, no thoracic spine tenderness, no lumbar spine tenderness and thoracic spine ROM normal Extremities: normal to inspection, normal to palpation, no tenderness and full ROM Neurology: lead blender II-XII intact, no movement abnormality noted, no focal motor deficit noted, deep tendon reflexes 2+ bilaterally, gait normal, speech normal, no pronator drift noted, no fasciculations noted and GCS normal pt reports decreased sensation of the right forehead ONLY Psychiatry: mental status grossly normal, oriented x3, thought process normal, cooperative and affect normal Skin: skin color normal, no rash and no lesions Course Course Hospital Course: TIA/CVA Pathway Toradol 30mg IV Zofran 4mg IV Head CT (-) acute findings Pending lab results Morphine 4mg IV Pending Admission Consultations Consultation #1: Discussed with Mia, Case Management. Will admit for acute headache. Vital Signs Vital signs: Vital Signs Temperature 98 F 03/18/25 15:30 Pulse Rate 86 03/18/25 15:30 Respiratory Rate 16 03/18/25 15:30 Blood Pressure 146/76 03/18/25 15:30 Pulse Oximetry 98 03/18/25 15:30 Oxygen Delivery Method Room Air 03/18/25 15:30 Temperature 98 F 03/18/25 15:30 Pulse Rate 86 03/18/25 15:30 Respiratory Rate 16 03/18/25 15:30 Blood Pressure 146/76 03/18/25 15:30 Pulse Oximetry 98 03/18/25 15:30 Oxygen Delivery Method Room Air 03/18/25 15:30 MDM - Neuro Symptoms/Deficit MDM Narrative Medical decision making narrative: History and physical exam consistent with acute refractory headache. Vital signs stable, NIH score 0, Limited subjective paresthesia of the right forehead only. Remaining neuroexam intact serially here in the ER. CT head negative. MRI brain negative on March 15, reviewed in ED. EKG nondynamic. Labs as annotated. IV medications with continued refractory headache. Will admit for continued evaluation and treatment of her headache. Would consider TIA as unlikely diagnosis, however patient needs bilateral carotid ultrasounds. We will attempt to accomplish this during this admission. Differential diagnosis considered listed below. Differential Diagnosis Differential diagnosis: Likely delirium, subarachnoid hemorrhage, peripheral neuropathy, cerebrovascular accident, multiple sclerosis and transient cerebral ischemia Medical Records Attestation: I reviewed the patient's medical records. Lab Data Attestation: I reviewed the patient's lab results. Labs: Lab Results 03/18/25 Range/Units 16:15 WBC 7.7 (4.3-9.3) K/uL RBC 4.1 (4.00-5.50) M/uL Hgb 12.2 L (12.5-15.8) gm/dL Hct 36.0 (35.9-46.7) % MCV 87.9 (81.0-93.7) fl MCH 29.9 (27.6-32.2) pg MCHC 34.0 (33.1-35.3) g/dl RDW 13.5 (11.4-14.2) % Plt Count 229 (152-353) K/uL MPV 9.7 (6.9-10.8) fl Gran % 62.6 (47.8-71.3) % Lymph % (Auto) 26.5 (20.0-43.0) % [place] % (Auto) 7.9 (3.6-9.8) % Eos % (Auto) 2.2 (0.4-2.8) % Baso % (Auto) 0.8 (0.1-0.85) Lymph # (Auto) 2.1 (1.1-3.1) [place] # (Auto) 0.6 L (1.1-3.1) Eos # (Auto) 0.2 (0.0-0.2) Baso # (Auto) 0.1 (0.0-0.1) Absolute Gran (auto) 4.9 (2.3-6.0) Sodium 141 (136-145) mmol/L Potassium 4.0 (3.6-5.2) mmol/L Chloride 106.0 (98-107) mmol/L Carbon Dioxide 28 (21-32) mmol/L Anion Gap 7.0 (4-14) mEq/L BUN 23 H (7-18) mg/dL Creatinine 1.0 (0.6-1.3) mg/dL Estimated GFR 65.3 (>59.9) Glucose 108 (70-110) mg/dL Calcium 8.7 (8.5-10.1) mg/dL Magnesium 1.9 (1.8-2.4) mg/dL Total Bilirubin 0.22 (0.0-1.0) mg/dL AST 27 (15-37) U/L ALT 25 L (30-65) U/L Alkaline Phosphatase 80 (50-136) U/L C-Reactive Protein 1.400 H (0.050-0.300) mg/dL Total Protein 6.7 (6.4-8.2) g/dL Albumin 3.2 L (3.4-5.0) g/dL Imaging Data Imaging ordered: CT scan - head Attestation: I have reviewed the pertinent imaging results. Radiologist's impression: normal head CT ECG Data Attestation: I personally reviewed and interpreted this ECG as follows: ECG interpretation date: 03/18/25 Interpretation: Normal Sinus, rate 70, no ST segment elevation or dynamic changes, no STEMI Discharge Plan Discharge Patient Disposition: Admitted As Observation Condition: Improved Chief Complaint: Stroke Clinical Impression: Acute intractable headache Prescriptions: No Action citalopram 40 mg tablet 40 mg PO DAILY gabapentin 100 mg capsule 100 mg PO BEDTIME ergocalciferol (vitamin D2) 1,250 mcg (50,000 unit) capsule 1,250 mcg PO QWEEK aspirin 81 mg tablet,delayed release (DR/EC) 81 mg PO DAILY Qty: 30 0RF famotidine [Pepcid] 40 mg tablet 40 mg PO BID Qty: 30 0RF levocetirizine [Xyzal] 5 mg tablet 5 mg PO DAILY Qty: 30 0RF fluticasone propionate [Flonase Allergy Relief] 50 mcg/actuation spray,suspension 1 spray intranasal BID Qty: 16 0RF Rx Instructions: administer into each nostril Print Language: Liberian Referrals: Millie Gaytan [Primary Care Provider] - Time of Disposition: 18:23
[2025-03-18] MEDS: MORPHINE SULFATE 4 MG/ML CARTRIDGE IVP ONE (17:51)
[2025-03-18] MEDS ORDERED: MORPHINE SULFATE 4 MG/ML CARTRIDGE ONE (17:51)
[2025-03-18] MEDS ORDERED: ACETAMINOPHEN 325 MG TABLET PO PRN (18:25)
[2025-03-18] MEDS: 0.9 % SODIUM CHLORIDE 1000 ML 1,000 ML IV SCH (20:22)
[2025-03-18] MEDS: FAMOTIDINE 20 MG TABLET PO SCH (20:23)
[2025-03-18] MEDS: GABAPENTIN 100 MG CAPSULE PO SCH (20:23)
[2025-03-18] MEDS: FLUTICASONE 50 MCG NASAL 1 SPRAY.SUSP NAS SCH (20:23)
[2025-03-18] MEDS: MORPHINE SULFATE 4 MG/ML CARTRIDGE IV PRN (22:05)
[2025-03-18] MEDS: ONDANSETRON HCL/PF 4 MG/2 ML VIAL INJ PRN (22:05)
[2025-03-19 05:13] LABS: Basophils%(Percent) Auto 0.4 (0.1-0.85); Eosinophils#(Absolute)Auto 0.2 (0.0-0.2); Eosinophils%(Percent) Auto 2.6 % (0.4-2.8); Granulocytes % - Auto 55.8 % (47.8-71.3); Granulocytes#(Absolute)- Auto 3.8 (2.3-6.0); Hematocrit 33.8 % (35.9-46.7); Monocytes #(Absolute)- Auto 0.6 (1.1-3.1); Monocytes %(Percent)- Auto 9.2 % (3.6-9.8); Platelet Count 201 K/uL (152-353); White Blood Count 6.8 K/uL (4.3-9.3)
[2025-03-19] MEDS: CITALOPRAM HYDROBROMIDE 20 MG TABLET PO SCH (08:38)
[2025-03-19] MEDS: ASPIRIN 81 MG TABLET.DR PO SCH (08:38)
--- NOTE | 2025-03-19 09:43 | History & Physical Report ---
H&P: HPI History of Present Illness Chief complaint: Acute Refractory Headache Narrative: Patient came into ER with complaints of worsening right side headache. She was admitted earlier this week for 3 days stay with headache which were not resolved when she was discharged. She states her PCP feels she could be having TIA's. Head CT and MRI were negative. She admits worsening pain and blurred vision the past day. Denies light making it worse. No fever, chills, night sweats, no dizziness. No n/v/d/c. No hematemesis, hematuria, hematochezia, or melena. No weakness. She was admitted for pain control and monitoring. Review of Systems Status of ROS 10 or more systems reviewed and unremark able except as noted in history and below [facility] Medical History (Updated 03/19/25 @ 09:50 by Paola Canales NP) GERD with esophagitis Dilatation of esophagus Arthritis Anxiety Depression Diabetes Surgical History Previous section History of tonsillectomy History of elbow surgery History of repair of hiatal hernia Hx of cholecystectomy Hx of breast reduction, elective History of partial hysterectomy Social History (Updated 03/19/25 @ 09:47 by Paola Canales NP) Smoking status: former smoker Nicotine containing products detail: smoked 1/2 ppd x 28 years Within the past year, how often did you have a drink containing alcohol: never Score interpretation: A score less than 3 is consistent with normal alcohol consumption. Non-prescribed substance use: denies use What is your current living situation: I presently have a place to live Problems where you live: no known problems Previous occupational history: works at [employer] (formerly [employer]) Highest level of school completed/degree received: decline to answer Meds Home Medications and Allergies Home Medications Medication Instructions Recorded Confirmed Type citalopram 40 mg tablet 40 mg PO DAILY 06/26/24 03/18/25 History ergocalciferol (vitamin D2) 1,250 1,250 mcg PO QWEEK 03/15/25 03/18/25 History mcg (50,000 unit) capsule gabapentin 100 mg capsule 100 mg PO BEDTIME 03/15/25 03/18/25 History aspirin 81 mg tablet,delayed 81 mg PO DAILY tia #30 tabs 03/16/25 03/18/25 Rx release famotidine 40 mg tablet (Pepcid) 40 mg PO BID gerd #30 tabs 03/16/25 03/18/25 Rx fluticasone propionate 50 1 spray intranasal BID sinus #16 03/16/25 03/18/25 Rx mcg/actuation nasal grams spray,suspension (Flonase Allergy Relief) levocetirizine 5 mg tablet (Xyzal) 5 mg PO DAILY allergic sinusi #30 03/16/25 03/18/25 Rx tabs Allergies Allergy/AdvReac Type Severity Reaction Status Date / Time epinephrine Allergy Mild Verified 03/18/25 15:48 Sulfa (Sulfonamide Allergy Mild Verified 03/18/25 15:48 Antibiotics) clarithromycin (From Biaxin) Allergy Verified 03/18/25 15:48 Exam Constitutional: normal general appearance, no apparent distress, average body habitus and no limitations Vital Signs - 24 hr 03/18/25 15:30 03/18/25 16:00 03/18/25 16:30 Temperature 98 F Pulse Rate 86 70 64 Pulse Rate [Brachi al] Respiratory Rate 16 14 16 Blood Pressure 146/76 160/79 130/80 Blood Pressure [Le ft Arm] Pulse Oximetry 98 95 96 Oxygen Delivery Me thod Room Air Room Air Room Air 03/18/25 17:00 03/18/25 18:00 03/18/25 19:00 Temperature Pulse Rate 67 62 64 Pulse Rate [Brachi al] Respiratory Rate 16 16 16 Blood Pressure 134/77 125/72 123/70 Blood Pressure [Le ft Arm] Pulse Oximetry 95 96 95 Oxygen Delivery Dc thod Room Air Room Air Room Air 03/18/25 19:42 03/18/25 19:50 03/18/25 20:00 Temperature 98 F 98.3 F Pulse Rate 64 Pulse Rate [Brachi al] 73 Respiratory Rate 16 17 17 Blood Pressure 123/70 Blood Pressure [Le ft Arm] 144/84 Pulse Oximetry 95 96 Oxygen Delivery Me thod Room Air Room Air 03/18/25 23:48 03/19/25 03:40 03/19/25 08:00 Temperature 98.3 F 97.9 F 97.8 F Pulse Rate Pulse Rate [Brachi al] 77 66 61 Respiratory Rate 18 19 17 Blood Pressure Blood Pressure [Le ft Arm] 97/55 87/51 121/67 Pulse Oximetry 95 96 97 Oxygen Delivery Me thod Room Air Room Air Room Air HENMT: normocephalic and head/scalp atraumatic Eyes: EOMs intact bilaterally, conjunctivae normal and no scleral icterus Neck/C-Spine: visual inspection normal and trachea midline Lymph: no lymphadenopathy noted and no lymphedema noted Chest: inspection of chest normal Respiratory: breath sounds equal bilaterally, normal respiratory effort, clear to auscultation bilaterally, no wheezes, no rales, no retractions and no use of accessory muscles Cardiovascular: normal heart rate noted, regular rhythm noted, no gallop, no rub, no murmur and no JVD Gastrointestinal: abdomen normal to inspection and abdomen soft to palpation Genitourinary: deferred Back/Pelvis: spine normal to inspection Extremities: normal to inspection, normal to palpation, no tenderness and full ROM Neurology: no movement abnormality noted, no focal motor deficit noted, no sensory deficits noted, speech normal and coordination normal Psychiatry: mental status grossly normal, oriented x3, thought process normal, cooperative, affect normal and memory normal Skin: skin color normal, no rash and no lesions Assessment and Plan Assessment and Plan (1) Dependence on nocturnal oxygen therapy: Code(s): Z99.81 - Dependence on supplemental oxygen (2) Hypotension: Qualifiers: Hypotension type: unspecified hypotension type Qualified Code(s): I95.9 - Hypotension, unspecified Code(s): I95.9 - Hypotension, unspecified (3) Right-sided headache: Code(s): R51.9 - Headache, unspecified Plan US carotids 2LNC while sleeping Diabetic diet Routine v/s Resume home medications Gabapentin Keorolac prn Morphine prn Zofran prn Citalopram prn famotidine prn Results Labs Labs: CBC 03/18/25 03/19/25 Range/Units 16:15 05:05 WBC 7.7 6.8 (4.3-9.3) K/uL RBC 4.1 3.9 L (4.00-5.50) M/uL Hgb 12.2 L 11.3 L (12.5-15.8) gm/dL Hct 36.0 33.8 L (35.9-46.7) % Plt Count 229 201 (152-353) K/uL Gran % 62.6 55.8 (47.8-71.3) % Lymph % (Auto) 26.5 32.0 (20.0-43.0) % [place] % (Auto) 7.9 9.2 (3.6-9.8) % Eos % (Auto) 2.2 2.6 (0.4-2.8) % Baso % (Auto) 0.8 0.4 (0.1-0.85) Lymph # (Auto) 2.1 2.2 (1.1-3.1) [place] # (Auto) 0.6 L 0.6 L (1.1-3.1) Eos # (Auto) 0.2 0.2 (0.0-0.2) Baso # (Auto) 0.1 0.0 (0.0-0.1) Absolute Gran (auto) 4.9 3.8 (2.3-6.0) CMP 03/18/25 03/19/25 16:15 05:05 Sodium 141 144 Potassium 4.0 4.0 Chloride 106.0 108.0 H Carbon Dioxide 28 28 BUN 23 H 23 H Creatinine 1.0 0.9 Glucose 108 130 H Calcium 8.7 8.4 L Liver Function 03/18/25 03/19/25 Range/Units 16:15 05:05 Total Bilirubin 0.22 0.10 (0.0-1.0) mg/dL AST 27 18 (15-37) U/L ALT 25 L 20 L (30-65) U/L Alkaline Phosphatase 80 72 (50-136) U/L Albumin 3.2 L 2.7 L (3.4-5.0) g/dL
[2025-03-19] MEDS: KETOROLAC 30 MG/ML INJ VIAL IVP PRN (16:56)
[2025-03-20 08:00] VITALS: BP 128/72; PULSE 76; RESP 17; TEMP 98.4
[2025-03-20 08:56] LABS: Potassium 4.1 mmol/L (3.6-5.2)
[2025-03-20 08:59] LABS: Basophils%(Percent) Auto 0.4 (0.1-0.85); Eosinophils#(Absolute)Auto 0.2 (0.0-0.2); Eosinophils%(Percent) Auto 3.1 % (0.4-2.8); Granulocytes % - Auto 61.2 % (47.8-71.3); Granulocytes#(Absolute)- Auto 4.2 (2.3-6.0); Hematocrit 32.3 % (35.9-46.7); Mean Corpuscular Volume 88.6 fl (81.0-93.7); Monocytes #(Absolute)- Auto 0.6 (1.1-3.1); Monocytes %(Percent)- Auto 8.7 % (3.6-9.8); Platelet Count 187 K/uL (152-353); White Blood Count 6.9 K/uL (4.3-9.3)
[2025-03-20] MEDS: BUTALB/ACETAMINOPHEN/CAFFEINE 1 EACH TABLET PO ONE (09:20)
--- NOTE | 2025-03-20 10:13 | Discharge Summary ---
DS: Providers Provider Date of admission: 03/18/25 18:25 Primary care physician: Millie Gaytan DS: Diagnosis Discharge Diagnosis (1) Right-sided headache: Assessment and plan: Patient started on Citalopram prior admit. Started on fiorcet with positive results (2) Hypotension: Assessment and plan: Resolved Qualifiers: Hypotension type: unspecified hypotension type Qualified Code(s): I95.9 - Hypotension, unspecified DS: Summary Hospital Course Hospital Course: Ms. Peng was admitted on 01/18/25 after being seen and admitted earlier last week for ongoing headache. Neuro exam and workup this admission were negative with carotid US <50% stensis. Patient was awaiting neurology consult prior to admit. Labs were at baseline during admit. She did have some hypotension which resolved with IVF during her stay. Headache was treated with morphine and toradol but she still continued to have GREGORIO on day of discharge and started on fiorcet. Fiorcet did make patient lethargic but complained of pain. Patient requested transfer but it was explained to her that she does not meet any criteria for transfer as workup was negative, she is clinically stable, and has no life threatening symptoms as this has been ongoing for 1 week. Patient was discharged on 03/23/25 to follow up with PCP and neurology. Status at Discharge Functional status at discharge: independent ambulation Overall status at discharge: patient is back to baseline Time Spent with Patient Time attestation: Total time spent providing and/or coordinating discharge services: Time spent: greater than 30 minutes Specific discharge activities: 35 min for discharge time with patient and planning Exam Constitutional: normal general appearance, no apparent distress, average body habitus and no limitations Vital Signs - 24 hr 03/19/25 11:36 03/19/25 16:22 03/19/25 19:51 Temperature 98.1 F 98.0 F 97.9 F Pulse Rate [Brachi al] 69 74 64 Respiratory Rate 18 18 20 Blood Pressure [Le ft Arm] 105/65 119/72 121/64 Pulse Oximetry 98 100 96 Oxygen Delivery Me thod Room Air Room Air Room Air 03/19/25 23:40 03/20/25 03:48 03/20/25 07:59 Temperature 97.9 F 97.8 F 98.4 F Pulse Rate [Brachi al] 62 68 76 Respiratory Rate 19 18 17 Blood Pressure [Le ft Arm] 118/68 95/51 128/72 Pulse Oximetry 97 96 97 Oxygen Delivery Me thod Room Air Room Air Room Air HENMT: normocephalic and head/scalp atraumatic Eyes: EOMs intact bilaterally, conjunctivae normal and no scleral icterus Neck/C-Spine: visual inspection normal and trachea midline Lymph: no lymphadenopathy noted and no lymphedema noted Chest: inspection of chest normal Respiratory: breath sounds equal bilaterally, normal respiratory effort, clear to auscultation bilaterally, no wheezes, no rales, no retractions and no use of accessory muscles Cardiovascular: normal heart rate noted, regular rhythm noted, no gallop, no rub, no murmur and no JVD Gastrointestinal: abdomen normal to inspection and abdomen soft to palpation Genitourinary: deferred Back/Pelvis: spine normal to inspection Extremities: normal to inspection, normal to palpation, no tenderness and full ROM Neurology: no movement abnormality noted, no focal motor deficit noted, no sensory deficits noted, speech normal and coordination normal Psychiatry: mental status grossly normal, oriented x3, thought process normal, cooperative, affect normal and memory normal Skin: skin color normal, no rash and no lesions DS: Data Data Completed and Pending Completed studies during hospitalization: CT GREGORIO comparied with CT GREGORIO and MRI at prior admit Carotid US Pending studies at discharge: None Labs on day of discharge: Labs from last 24 hours 03/20/25 08:30 WBC 6.9 RBC 3.6 L Hgb 10.9 L Hct 32.3 L MCV 88.6 MCH 29.9 MCHC 33.8 RDW 13.3 Plt Count 187 MPV 8.6 Gran % 61.2 Lymph % (Auto) 26.6 [place] % (Auto) 8.7 Eos % (Auto) 3.1 H Baso % (Auto) 0.4 Lymph # (Auto) 1.8 [place] # (Auto) 0.6 L Eos # (Auto) 0.2 Baso # (Auto) 0.0 Absolute Gran (auto) 4.2 Sodium 143 Potassium 4.1 Chloride 109.0 H Carbon Dioxide 26 Anion Gap 8.0 BUN 14 Creatinine 0.9 Estimated GFR 74.1 Glucose 157 H Calcium 8.0 L Total Bilirubin 0.22 AST 17 ALT 22 L Alkaline Phosphatase 74 Total Protein 5.7 L Albumin 2.7 L Discharge Plan Discharge Disposition: Home, Self-Care Condition: Improved Discharge Medications: New [id number]-[id number]-[id number] 50-325-40 mg Tablet 1 tab PO Q6H PRN (Reason: Headache) Qty: 10 0RF Continued citalopram 40 mg tablet 40 mg PO DAILY gabapentin 100 mg capsule 100 mg PO BEDTIME ergocalciferol (vitamin D2) 1,250 mcg (50,000 unit) capsule 1,250 mcg PO QWEEK aspirin 81 mg tablet,delayed release (DR/EC) 81 mg PO DAILY Qty: 30 0RF famotidine [Pepcid] 40 mg tablet 40 mg PO BID Qty: 30 0RF levocetirizine [Xyzal] 5 mg tablet 5 mg PO DAILY Qty: 30 0RF fluticasone propionate [Flonase Allergy Relief] 50 mcg/actuation spray,suspension 1 spray intranasal BID Qty: 16 0RF Rx Instructions: administer into each nostril Discharge Orders: Discharge Order (Routine); Ordered 03/20/25 Ordered By: Andrew Cantor Activity: increase activity as tolerated Activity Detail: as tolerated Diet: regular diet Interventions: Discharge Assessment Last Done: 03/20/25 11:30 MED/SURG & ICU Observation Charge Sheet Last Done: 03/20/25 11:33 Plan of Treatment: See neurology CASSI Patient Instructions: Migraine Headache (ED), Acute Headache (DC), Dizziness (ED) Activity Restrictions/Additional Instructions: KEEP FOLLOW-UP APPOINTMENTS WITH PRIMARY CARE AND NEUROLOGY RESUME HOME MEDICATIONS TAKE MEDICATIONS FOR PAIN DIRECTED FOR HEADACHE Forms: Portal/Health Info Access Inst Follow-Ups: Millie Gaytan [Primary Care Provider] - Discharge Date/Time: 03/20/25 12:35
[2025-03-20] MEDS ORDERED: BUTALB/ACETAMINOPHEN/CAFFEINE 1 EACH TABLET PO PRN (13:00)
== END 2025-03-20 12:35 | disposition home or self-care (01) ==
LOC: ED 15:24 → MS 15:24
PROVIDERS: ADMIT Nurse Practitioner Family; ATTEND Nurse Practitioner Family
DX: F41.9 Anxiety disorder, unspecified; Z87.19 Personal history of other diseases of the digestive system; Z79.899 Other long term (current) drug therapy; Z86.39 Personal history of other endocrine, nutritional and metabolic disease; Z88.2 Allergy status to sulfonamides; Z79.82 Long term (current) use of aspirin; I95.9 Hypotension, unspecified; R51.9 Headache, unspecified; Z87.891 Personal history of nicotine dependence; F32.A Depression, unspecified; Z88.1 Allergy status to other antibiotic agents; R20.2 Paresthesia of skin; Z88.8 Allergy status to other drugs, medicaments and biological substances; Z99.81 Dependence on supplemental oxygen